=== PATIENT | female | born 1930 | race Caucasian/White ===

== ENCOUNTER → 2017-10-05 | Outpatient (CLI) | payer OTHER, MEDICARE ==
[~2017-10-05] MED LIST: ALEN10 PO; ALEN70 PO; ASPI325 PO; ASPI81CH PO; ASPI81EC PO; BRIM.15SO OD; BRINOPSU OD; CALCIT950 PO; CENTURY SENIOR PO; CYAN100 PO; DOCU100 PO; DORZOPSO; ERGO50000 PO; ESZO1 PO; ESZO2 PO; FISH1000 PO; FOLI400 PO; FURO20 PO; FURO40 PO; INSUASPI SC; LEVFLO500 PO; LEVSOD125 PO; LISI10 PO; LISI20 PO; LISI5 PO; LOVA20 PO; METO25ER PO; MIRALAX17 GM PO; MULVITMIND PO; OMEP20ER PO; OSCAL; Ocuvite Softge1 EAC1 PO; PANT40 PO; POTCHL10ER PO; PRED20 PO; PRED5 PO; RISE35 PO; SIMBRINZA 1%-0.28 ML OP; STOMUL PO; TRAV.004OP BOTHEYES; TRAV.004OP OD; VITB2 PO; VITS/SUPPS; Vitamin B-225 MG PO; Vitamin D-3 PO; Zoloft50 MG PO; [UNRECOGNIZED DRUG - OTHER]; [UNRECOGNIZED DRUG - REMARK]
== END | disposition home or self-care (01) ==
LOC: LAB 15:30
DX: N39.0 Urinary tract infection, site not specified (principal)
CPT/HCPCS: 84156